=== PATIENT | female | born 1955 | race Caucasian/White ===

== ENCOUNTER 2018-07-03 10:13 | Emergency (ER) | payer OTHER ==
[2018-07-03 10:47] VITALS: BP 109/72
--- NOTE | 2018-07-03 10:52 | ER Document Report ---
HPI - HPI Time Seen by Provider: 07/03/18 10:41 Pain Level: 4 Notes: Patient is a 62-year-old female with a history of prolonged QT syndrome ( defibrillator in place), lupus, rheumatoid arthritis who presents to the ED complaining of left ankle pain laterally status post mechanical fall when she is walking this morning. Patient states that she felt her ankle give out and she twisted it causing pain and swelling to the lateral side. Patient states that she is here for an x-ray and does not need any pain medicine or ice at this time. She is on chronic opioid medication for chronic pain otherwise. She denies drug allergies or being on blood thinners. Patient states that her defibrillator did not go off and she did not have any lightheadedness, chest pain, dizziness, or syncope. Patient states that this was strictly due to rolling her ankle while she was walking. She has no other concerns or complaints. Patient states that she is still able to ambulate and weight-bear, but is limping. Pain does not radiate. Denies any headache, fever, head injury , neck pain, changes in vision/speech/mentation/hearing, URI, sore throat, chest pain, palpitations, syncope, cough, shortness of breath, wheeze, dyspnea, abdominal pain, nausea/vomiting/diarrhea, urinary retention, dysuria, hematuria , back pain, loss of control of bowel or bladder, numbness/tingling, saddle anesthesia, muscle paralysis/weakness, or rash. - ROS Systems Reviewed and Negative: Yes All other systems reviewed and negative Past Medical History - Social History Smoking Status: Never Smoker Family History: Reviewed & Not Pertinent Vertical Provider Document - CONSTITUTIONAL Agree With Documented VS: Yes Notes: PHYSICAL EXAMINATION: GENERAL: Well-appearing, well-nourished and in no acute distress. LUNGS: Breath sounds clear to auscultation bilaterally and equal. No wheezes rales or rhonchi. HEART: Regular rate and rhythm without murmurs, rubs, gallops. Musculoskeletal: Lt foot/ankle: FROM to passive/active. Strength 5+/5. N/V intact distal. + tenderness to the lateral malleolus with associated swelling, no ecchymosis or obvious dislocation. No bony tenderness of the foot. Achilles intact. Extremities: No cyanosis, clubbing, or edema b/l. Peripheral pulses 2+. Capillary refill less than 3 seconds. NEUROLOGICAL: Normal speech, limping gait. Normal sensory, motor exams PSYCH: Normal mood, normal affect. SKIN: Warm, Dry, normal turgor, no rashes or lesions noted. - INFECTION CONTROL TRAVEL OUTSIDE OF THE [place] IN LAST 30 DAYS: No Course - Re-evaluation Re-evalutation: 07/03/18 12:45 Patient is an afebrile, well-hydrated, 62-year-old female who presents to the ED with left lateral ankle pain which I suspect to be a sprain versus strain. Vitals are acceptable without any significant tachycardia, tachypnea, or hypoxia. PE is otherwise unremarkable for any neurovascular compromise, obvious tendon/ligament rupture, obvious fracture/dislocation, septic joint. X- ray was unremarkable for any acute pathology. Ankle stirrup provided today. Patient declined any Tylenol, cruthces, or ice. Patient is nontoxic-appearing. Patient is able to ambulate and weight-bear although she is limping. No other labs or imaging warranted at this time based on H&P. Conservative measures otherwise for symptoms. Recheck with your PCM in 3-5 days. Consider consult orthopedics. Return to the ED with any worsening/concerning symptoms otherwise as reviewed in discharge. Patient is in agreement. - Vital Signs Vital signs: Temp Pulse Resp BP Pulse Ox 97.9 F 82 16 109/72 97 07/03/18 10:17 07/03/18 10:17 07/03/18 10:17 07/03/18 10:17 07/03/18 10:17 Discharge - Discharge Clinical Impression: Left ankle pain Qualifiers: Chronicity: acute Qualified Code(s): M25.572 - Pain in left ankle and joints of left foot Condition: Stable Disposition: HOME, SELF-CARE Additional Instructions: Rest, Ice, Compression, Elevation Use splint as directed Tylenol/ibuprofen as needed Light stretches daily Strength exercises as able Moist heat and massage may help F/u with your PCP in 3-5 days for a recheck Consider consult(s) with Orthopedics/physical therapy for ongoing/worsening symptoms Return to the ED with any worsening symptoms and/or development of fever, headache, chest pain, palpitations, syncope, shortness of breath, trouble breathing, abdominal pain, n/v/d, blood in stool/urine, loss of control of bowel /bladder, urinary retention, muscle weakness/paralysis, saddle anesthesia, numbness/tingling, or other worsening symptoms that are concerning to you. Referrals: JERAMY SWIFT PA-C [NO LOCAL MD] - Follow up in 3-5 days [facility] [Provider Group] - Follow up as needed
--- NOTE | 2018-07-03 12:15 | RADIOLOGY REPORT (SQ) ---
EXAM DESCRIPTION: ANKLE LEFT COMPLETE COMPLETED DATE/TIME: 07/03/2018 11:24 am REASON FOR STUDY: left ankle pain s/p injury, lateral malleolus COMPARISON: None. NUMBER OF VIEWS: Three views. TECHNIQUE: AP, lateral, and oblique radiographic images acquired of the left ankle. LIMITATIONS: None. FINDINGS: MINERALIZATION: Normal. BONES: No acute fracture or dislocation. Small calcaneal spur. JOINTS: No effusions. SOFT TISSUES: No soft tissue swelling. No foreign body. OTHER: No other significant finding. IMPRESSION: 1. NEGATIVE STUDY OF THE LEFT ANKLE. TECHNICAL DOCUMENTATION: JOB ID: [id number] [employer]- All Rights Reserved Reading location - IP/workstation name: [email or web address]
== END 2018-07-03 13:09 | disposition home or self-care (01) ==
LOC: ER 10:13
DX: M25.572 Pain in left ankle and joints of left foot (principal); M25.472 Effusion, left ankle; W19.XXXA Unspecified fall, initial encounter; Y93.01 Activity, walking, marching and hiking; I45.81 Long QT syndrome; Z95.810 Presence of automatic (implantable) cardiac defibrillator; G89.29 Other chronic pain; Z79.891 Long term (current) use of opiate analgesic
CPT/HCPCS: 99283; 73610; L1902

== ENCOUNTER 2019-06-14 09:31 | Day surgery (SDC) | payer OTHER ==
--- NOTE | 2019-06-12 09:35 | EKG REPORT ---
SEVERITY:- ABNORMAL ECG - ATRIAL-PACED RHYTHM : Confirmed by: Pablo Mai 12-Jun-2019 09:34:55
[2019-06-12 09:45] LABS: HEMOGLOBIN 13.6 g/dL (12.0-15.5); MEAN CORPUSCULAR HEMOGLOBIN 29.7 pg (27.0-33.4); MEAN CORPUSCULAR VOLUME 87 fl (80-97); PLATELET COUNT 283 10^3/uL (150-450); RED BLOOD COUNT 4.58 10^6/uL (3.72-5.28); RED CELL DISTRIBUTION WIDTH 12.7 % (11.5-14.0); WHITE BLOOD COUNT 6.7 10^3/uL (4.0-10.5)
[2019-06-12 10:19] LABS: ANION GAP 8 (5-19); BLOOD UREA NITROGEN 15 mg/dL (7-20); CALCIUM 9.7 mg/dL (8.4-10.2); CARBON DIOXIDE 30 mmol/L (22-30); CHLORIDE 102 mmol/L (98-107); GLUCOSE 94 mg/dL (75-110); POTASSIUM 4.7 mmol/L (3.6-5.0)
[~2019-06-14 09:31] MED LIST: PROPOFOL INJ 200 MG/20 ML VIAL IV ONE
[2019-06-14] MEDS ORDERED: PROPOFOL INJ 200 MG/20 ML VIAL IV ONE (14:05)
--- NOTE | 2019-06-14 15:03 | Discharge Summary ---
Discharge Summary (SDC) - Discharge Final Diagnosis: Large, sessile polyp of the cecum. Date of Surgery: 06/14/19 Discharge Date: 06/14/19 Condition: Good Treatment or Instructions: Discharge home. Diet as tolerated. Activity: Nonstrenuous. Follow-up with me in 7 to 10 days. Referrals: SERVANDO DAY JR, MD [Primary Care Provider] - ABBI PADILLA MD [ACTIVE STAFF] - Discharge Diet: As Tolerated Respiratory Treatments at Home: Deep Breathing/Coughing, Incentive Spirometer Discharge Activity: Balance Activity w/Rest Home Care Assistance: None Needed Report the Following to Your Physician Immediately: Shortness of Breath, Nausea, Increase in Pain, Fever over 101 Degrees, Unusual Bleeding, IV Site Infection Signs, Urinary Infection Signs
--- NOTE | 2019-06-14 15:10 | Operative Report ---
Nonrecallable Operative Report DATE OF SURGERY: 06/14/19 PREOPERATIVE DIAGNOSIS: Large, sessile polyp of the cecum POSTOPERATIVE DIAGNOSIS: Same as above OPERATION: 1. Colonoscopy to the cecum. 2. Endoscopic mucosal resection of large cecal polyp using stiff, hexagonal snare SURGEON: ABBI PADILLA ANESTHESIA: LMAC TISSUE REMOVED OR ALTERED: Large, sessile polyp of the cecum. Removed piecemeal COMPLICATIONS: Patient has a pacemaker/AICD. A magnet was used for a small portion of the procedure due to electrocautery. When the magnet was on the pacemaker, the vanessa brown experienced wide-complex tachycardia. The magnet was immediately removed, and the patient's heart rhythm normalized. ESTIMATED BLOOD LOSS: Minimal PROCEDURE: Procedure in detail: After informed consent was obtained, the patient was brought to the operating room and placed in the left lateral decubitus position. The endoscope was passed up the rectum, sigmoid colon, descending colon, across the transverse colon, down the ascending colon, and into the cecum. The ileocecal valve and appendiceal orifice were identified. The prep was exc ellent. There was a large, sessile polyp extending from approximately the edge of the appendiceal orifice, into the cecum. The large cecal polyp was removed in piecemeal fashion using a stiff, hexagonal snare. This was done with both cold and hot technique. Electrocautery was only used when absolutely necessary. Additional tissue was taken from the proximal margin, adjacent to the appendix using a cold biopsy forcep. This was sent as a separate specimen. There was no significant, active bleeding. At this time the scope was withdrawn. Upon removal of the scope, there was no other obvious polypoid tissue. The scope was removed from the anus, and the procedure was concluded. All sponge, instrument, and needle counts were correct. Condition: Stable.
[2019-06-14 15:31] VITALS: BP 128/71
== END 2019-06-14 14:49 | disposition home or self-care (01) ==
LOC: END 09:31
PROVIDERS: ATTEND Surgery
DX: D12.0 Benign neoplasm of cecum (principal); M79.7 Fibromyalgia; Z79.899 Other long term (current) drug therapy
CPT/HCPCS: 45380; 45385; 93005; 36415; 85027; 80048; 88305 ×2; 93010; 00811; J2704; 811